=== PATIENT | male | born 1980 | race Caucasian/White ===

== ENCOUNTER 2017-10-16 16:44 | Emergency (ER) | payer OTHER, MEDICAID ==
[2017-10-16 16:48] VITALS: TEMP 98.2
[2017-10-16] MEDS ORDERED: ONDANSETRON DISINTEGRATING 4 MG TAB PO ONE (17:04)
[2017-10-16] MEDS ORDERED: OXYCODONE/APAP 5/325 TAB PO ONE (17:04)
--- NOTE | 2017-10-16 17:31 | EDPHY ---
H & P Stated Complaint: L knee pain after fall ~ 3'; weight landed on L leg;no other injuries Time Seen by Provider: 10/16/17 16:49 HPI/ROS: HPI: This is a 37-year-old male presents with Chief Complaint:L knee pain after fall ~ 3'; weight landed on L leg;no other injuries Location: Left knee Quality: Injury Duration: 1-2 hours prior to arrival Signs and Symptoms: No bleeding, no radiation, no numbness, no weakness, no tingling, no incontinence, + decreased range of motion, + swelling, + pain Timing: Sudden Severity: 05/20 Context: Patient is a contractor, working on the roof of a client, when he stepped from the house removed to the garage roof approximately 3 ft and landed directly onto his left foot experiencing pain in his left medial knee, pain is constant moderate to severe in nature. Worsened with weight-bearing. He is concerned that he may have injured his leg or meniscus. He is able to get off a roof cut on a ladder, and drive himself to the emergency room. He took 800 mg of ibuprofen and Tylenol prior to arrival with no pain relief. Denies paresthesias/skin color changes/LOC. Modifying Factors: See above Comment: ROS: see HPI Constitutional: No fever, no chills, no weight loss Eyes: No blurred vision Respiratory: No shortness of breath, no cough Cardiovascular: No chest pain Gastrointestinal: No nausea, no vomiting no diarrhea Genitourinary: No dysuria Extremities: No myalgias Neurologic: No weakness, no numbness Skin: No rashes Hematologic: No bruising, no bleeding MEDICAL/SURGICAL/SOCIAL HISTORY: Medical history: Generally healthy. Does not take any regular medications. 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 Tympanic membranes clear. Oropharynx clear, no exudate and moist pink mucosa. Airway patent. No lymphadenopathy. No meningismus. Cardiovascular: Normal S1/S2, regular rate, regular rhythm, without murmur rub or gallop. PULMONARY/CHEST: Symmetrical and nontender. Clear to auscultation bilaterally. Good air movement. No accessory muscle usage. ABDOMEN: Soft, nondistended, nontender, no rebound, no guarding, no peritoneal signs, no masses or organomegaly. No CVAT. EXTREMITIES: 2/2 DP and PT pulses, strength 5/5, no deformities, no clubbing, no cyanosis or edema. NEUROLOGICAL: no focal neuro deficits. GCS 15. SKIN: Warm and dry, no erythema. no rash. Good capillary refill. Source: Patient Exam Limitations: No limitations - Personal History Current Tetanus Diphtheria and Acellular Pertussis (TDAP): Yes - Medical/Surgical History Hx Asthma: No Hx Chronic Respiratory Disease: No Hx Diabetes: No Hx Cardiac Disease: No Hx Renal Disease: No Hx Cirrhosis: No Hx Alcoholism: No Hx HIV/AIDS: No Hx Splenectomy or Spleen Trauma: No Other PMH: ACL repair bilat - Social History Smoking Status: Current some day smoker Constitutional: Initial Vital Signs Temperature (C) 36.8 C 10/16/17 16:45 Heart Rate 67 10/16/17 16:45 Respiratory Rate 18 10/16/17 16:45 Blood Pressure 137/83 H 10/16/17 16:45 O2 Sat (%) 97 10/16/17 16:45 Allergies/Adverse Reactions: No Known Allergies Allergy (Verified 10/16/17 16:44) Home Medications: Medication Instructions Recorded Gabapentin [Neurontin 400 MG (*)] 400 mg PO HS 10/16/17 oxyCODONE/APAP 5/325 [Percocet 1 - 2 tab PO Q4H PRN #12 tab 10/16/17 5/325 (*)] Medical Decision Making - Diagnostics Imaging Results: Imaging Impressions Knee X-Ray 10/16/17 17:03 Impression: Postsurgical changes of prior ACL reconstruction. Mild early degenerative change medial compartment. Loose body. Mild suprapatellar joint effusion. Procedures: Procedure: Splint placement. A left knee immobilizer was applied by the emergency community planning technician. After application of the splint I returned and re-examined the patient. The splint was adequately immobilizing the joint and distal to the splint the patient's circulation and sensation was intact. ED Course/Re-evaluation: Left knee x-ray, oral medications ordered Patient given Percocet x2 and Ativan 1 mg per his request for anxiolytic No signs of neurovascular compromise/tenting of skin/compartment syndrome/ extremities and joints examined above and below area of concern and are neurovascularly intact. X-ray my read shows no signs of fracture, dislocation; screw from prior surgery in place; mild effusion. Patient placed in knee immobilizer, given crutches, weight-bearing status start as toe-touch and slowly advance as tolerated, RICE This patient was seen under the supervision of my secondary supervising physician. I evaluated care for this patient independently. Discussed this patient with Dr. Aguilar who did not see the patient. Patient's presentation, labs/imaging, treatment and plan of care were discussed with secondary supervising physician. Differential Diagnosis: Knee injury while [] including but not limited to fracture, ACL injury, contusion, muscular strain, and meniscus injury. - Data Points Medications Given: Discontinued Medications Lorazepam (Ativan) 1 mg PO EDNOW ONE Stop: 10/16/17 17:43 Last Admin: 10/16/17 17:44 Dose: 1 mg Ondansetron HCl (Zofran Odt) 4 mg PO EDNOW ONE Stop: 10/16/17 17:05 Last Admin: 10/16/17 17:09 Dose: 4 mg Oxycodone/Acetaminophen (Percocet 5/325) 2 tab PO EDNOW ONE Stop: 10/16/17 17:05 Last Admin: 10/16/17 17:09 Dose: 2 tab Departure - Departure Disposition: Home, Routine, Self-Care Clinical Impression: Internal derangement of left knee Condition: Good Instructions: Knee Sprain (ED), Knee Immobilizer (ED) Additional Instructions: Wear knee immobilizer while out of bed. Use crutches to aid ambulation; start with toe-touch weight-bearing and slowly advance as tolerated. Take Tylenol 650 mg every 4 hours and/or Ibuprofen 600 mg every 8 hours with food as needed for pain. Use Percocet every 6 hours as needed for severe/breakthrough pain. Do not use Tylenol and Percocet concominantly. Apply ice for 30 minutes at a time; 2-3 times per day for the next 1-2 days. Follow up with Orthopedics in 5-7 days if symptoms persist or worsen at which time they will evaluate and recommend with you if conservative management versus adjuvant therapy like MRI is indicated. The x-rays obtained in the emergency department today demonstrate no evidence of an obvious fracture. Sometimes fractures are not obvious on the initial set of x-rays performed in the ED. For this reason, you should have repeat x-rays performed in 7-10 days if you are having any pain exclude the possibility of an occult fracture. Referrals: Erika Greco MD [Primary Care Provider] - As per Instructions Jose Herrera MD [Medical Doctor] - As per Instructions Prescriptions: oxyCODONE/APAP 5/325 [Percocet 5/325 (*)] 1 - 2 tab PO Q4H PRN #12 tab PRN Reason: Pain, Severe
[2017-10-16] MEDS ORDERED: LORazepam 1 MG TAB PO ONE (17:42)
[2017-10-16 18:13] VITALS: BP 122/74; PULSE 68; RESP 16; O2SAT 94
== END 2017-10-16 18:12 | disposition home or self-care (01) ==
DX: M23.92 Unspecified internal derangement of left knee (principal); F17.200 Nicotine dependence, unspecified, uncomplicated; W20.8XXA Other cause of strike by thrown, projected or falling object, initial encounter; Y92.009 Unspecified place in unspecified non-institutional (private) residence as the place of occurrence of the external cause; Y99.0 Civilian activity done for income or pay; Y93.89 Activity, other specified
CPT/HCPCS: L1830

== ENCOUNTER 2019-02-24 16:37 | Emergency (ER) | payer MEDICAID, OTHER ==
[2019-02-24 16:43] VITALS: BP 144/87
--- NOTE | 2019-02-24 17:00 | EDPHY ---
HPI/HX/ROS/PE/MDM Narrative: CHIEF COMPLAINT: Injury to right middle finger HPI: This patient is a healthy 38 year old male. Yesterday or the day before, he was weeding in his yard and accidentally grabbed a broken metal yard sign or coat- wire hanger-like wire which punctured his right middle finger just below the DIP joint. He pulled the wire out immediately. Today, his finger is swollen and mildly pink, and painful to bend. He is concerned about possible retained foreign body vs infection. He cannot remember the date of his last tetanus vaccination. He denies any systemic illness or other recent trauma or further concerns. REVIEW OF SYSTEMS: Gen: No fever, no chills PMH: Denies SOCIAL HISTORY: . Lives in [place]. Self-employed. PHYSICAL EXAM: General: Patient is alert, in no acute distress. Right hand: Puncture wound at crease of right middle finger at DIP joint with fusiform swelling. Neuro: Oriented x3. Normal motor function. Normal sensory function. ED Course: 38 y/o male presents with a puncture wound at the crease of his right middle finger at DIP joint with diffuse mild swelling secondary to accidentally grabbing a sharp metal wire while doing yard work. Plan for x-ray to r/o retained foreign body or other acute processes. Will administer Tdap booster as the patient does not remember the date of his last vaccine. X-ray shows soft tissue swelling, no evidence of retained foreign body. Reassessed patient. Discussed imaging results. Plan to discharge home in good condition with prescription for Keflex. Referral to hand surgery provided. Follow up and return precautions discussed. The patient is comfortable with this plan. MDM: This patient presents with finger pain and swelling after puncture wound. There is no evidence of retained foreign body or tenosynovitis at this time - his exam is very reassuring. We will provide antibiotics as a precaution and have advised follow-up with hand specialist. - Data Points Imaging Results: Imaging Impressions Finger X-Ray 02/24/19 17:05 Impression: Smyth soft tissue swelling. Medications Given: Discontinued Medications Diphtheria/Tetanus/Acell Pertussis (Boostrix) 0.5 ml IM .ONCE ONE Stop: 02/24/19 17:06 Last Admin: 02/24/19 17:17 Dose: 0.5 ml General Time Seen by Provider: 02/24/19 16:48 Initial Vital Signs: Initial Vital Signs Temperature (C) 36.7 C 02/24/19 16:40 Heart Rate 63 02/24/19 16:40 Respiratory Rate 16 02/24/19 16:40 Blood Pressure 144/87 H 02/24/19 16:40 O2 Sat (%) 97 02/24/19 16:40 O2 Delivery Mode Room Air Allergies/Adverse Reactions: No Known Allergies Allergy (Verified 09/01/18 00:04) Home Medications: Medication Instructions Recorded Gabapentin [Neurontin 400 MG (*)] 400 mg PO HS 10/16/17 Adderall 10 MG (*) 09/01/18 Cephalexin [Keflex] 500 mg PO TID #21 cap 02/24/19 Departure - Departure Disposition: Home, Routine, Self-Care Clinical Impression: Puncture wound of finger of right hand Condition: Good Instructions: Puncture Wound (ED), Tdap and Td Vaccines for Adults (ED) Additional Instructions: Follow up with the hand specialist as we discussed for ongoing concerns or symptoms unresolved. We have provided a referral to our hand specialist director of instruction. Take Keflex as prescribed. It is important to finish your entire course of antibiotics. Return to the Emergency Department for fever, redness, discharge from wound, increasing pain or other worsening of condition. Referrals: Viridiana Chauhan MD [Medical Doctor] - As per Instructions Nick Schultz MD [Medical Doctor] - As per Instructions Prescriptions: Cephalexin [Keflex] 500 mg PO TID #21 cap Report Scribed for: Oz Wilcox Report Scribed by: Amber Reeves Date of Report: 02/24/19 Time of Report: 16:58 Physician Review and Approval Statement: Portions of this note were transcribed by an ED scribe. I personally performed the history, physical exam, and medical decision making; and confirm the accuracy of the information in the transcribed note.
[2019-02-24] MEDS ORDERED: TDAP ADULT 0.5 ML INJ (BOOSTRIX) IM ONE (17:05)
== END 2019-02-24 18:02 | disposition home or self-care (01) ==
DX: S61.202A Unspecified open wound of right middle finger without damage to nail, initial encounter (principal); Z23 Encounter for immunization; W26.8XXA Contact with other sharp object(s), not elsewhere classified, initial encounter; Y92.008 Other place in unspecified non-institutional (private) residence as the place of occurrence of the external cause; Y93.H2 Activity, gardening and landscaping

== ENCOUNTER 2019-03-14 20:56 | Emergency (ER) | payer MEDICAID | END 2019-03-15 00:19 | disposition home or self-care (01) ==

== ENCOUNTER 2019-03-16 15:31 | Inpatient (IN) | payer MEDICAID | END 2019-03-20 11:32 | disposition home or self-care (01) | LOC: F3E 17:59 ==